=== PATIENT | male | born 1950 | race Caucasian/White ===

== ENCOUNTER 2022-03-20 07:43 | Outpatient (CLI) | payer MEDICARE, OTHER | END 2022-03-20 23:59 | disposition home or self-care (01) | LOC: LAB 07:43 | PROVIDERS: ATTEND Surgery | DX: Z01.812 Encounter for preprocedural laboratory examination (principal); Z20.822 Contact with and (suspected) exposure to COVID-19 ==

== ENCOUNTER 2022-03-21 07:23 | Day surgery (SDC) | payer MEDICARE, OTHER ==
[2022-03-21] MEDS ORDERED: PROPOFOL 200 MG/20 ML BOTTLE ONE (10:00)
[2022-03-21] MEDS ORDERED: LIDOCAINE-MPF 2% 5 ML VIAL ONE (10:00)
== END 2022-03-21 11:15 | disposition home or self-care (01) ==
LOC: DS 07:23
PROVIDERS: ATTEND Surgery
DX: R13.10 Dysphagia, unspecified (principal); K44.9 Diaphragmatic hernia without obstruction or gangrene; K29.50 Unspecified chronic gastritis without bleeding; K29.80 Duodenitis without bleeding; K31.89 Other diseases of stomach and duodenum; I10 Essential (primary) hypertension; E78.5 Hyperlipidemia, unspecified; I25.10 Atherosclerotic heart disease of native coronary artery without angina pectoris; F32.9 Major depressive disorder, single episode, unspecified; Z79.899 Other long term (current) drug therapy; Z98.890 Other specified postprocedural states; Z88.0 Allergy status to penicillin; Z88.5 Allergy status to narcotic agent
CPT/HCPCS: 43239; 71045; 93005; J3490; J7120; A4663

== ENCOUNTER 2022-12-11 12:44 | Outpatient (CLI) | payer OTHER ==
[2022-12-11] MEDS ORDERED: IOHEXOL 350 100 ML INFUS..BTL ONE (13:23)
[2022-12-11] MEDS ORDERED: IV NORMAL SALINE 250 ML IV ONE ×2 (13:24→13:26)
[2022-12-11] MEDS ORDERED: SWABABLE VALVE TRANSFER SET EA MC ONE (13:24)
[2022-12-11] MEDS ORDERED: HYDR-3980 PO (16:21)
[2022-12-11] MEDS ORDERED: OXYC10TA49 PO (16:21)
[2022-12-11] MEDS ORDERED: PANT40TA2 PO (16:21)
[2022-12-13] MEDS ORDERED: GABA-532 PO (20:12)
== END 2022-12-11 23:59 | disposition home or self-care (01) ==
LOC: RAD 12:44
PROVIDERS: ATTEND Emergency Medicine
DX: J43.2 Centrilobular emphysema (principal); R09.02 Hypoxemia; R91.8 Other nonspecific abnormal finding of lung field; M51.34 Other intervertebral disc degeneration, thoracic region; J98.4 Other disorders of lung; M40.294 Other kyphosis, thoracic region
CPT/HCPCS: 71270; 71275; Q9967

== ENCOUNTER 2022-12-11 14:50 | Inpatient (IN) | payer OTHER ==
[~2022-12-11] VITALS: Ht 167.6 cm; Wt 70.8 kg
[2022-12-11] MEDS ORDERED: LIDOCAINE HCL 1% 20 ML VIAL IJ ONE (15:00)
[2022-12-11] MEDS ORDERED: LORAZEPAM 2 MG/1 ML VIAL ONE ×2 (15:13→15:21)
[2022-12-11] MEDS ORDERED: LORAZEPAM 2 MG/1 ML VIAL IV ONE ×2 (15:15→15:21)
[2022-12-11] MEDS ORDERED: LIDOCAINE HCL 2% 20 ML VIAL ONE (15:31)
--- NOTE | 2022-12-11 15:32 | NUR ---
Patient received a second dose of ativan in the middle of procedure ordered by Dr. Greg Duran
[2022-12-11 16:13] LABS: HEMATOCRIT 34.1 % (36.7-47.1); MEAN CORPUSCULAR HEMOGLOBIN 28.2 uug (23.8-33.4); MEAN CORPUSCULAR VOLUME 88.4 fL (73.0-96.2); PLATELET COUNT (AUTO) 277 K/uL (152-348)
[2022-12-11 16:21] LABS: CARBON DIOXIDE 29 mmol/L (21-32); CHLORIDE 100 mmol/L (98-107); CREATININE 0.7 mg/dL (0.6-1.3); POTASSIUM 4.4 mmol/L (3.5-5.1); UREA NITROGEN, BLOOD 22 mg/dL (7-18)
[2022-12-11] MEDS ORDERED: PANT40TA2 PO (16:21)
[2022-12-11] MEDS ORDERED: HYDR-3980 PO (16:21)
[2022-12-11] MEDS ORDERED: OXYC10TA49 PO (16:21)
--- NOTE | 2022-12-11 16:23 | NUR ---
1) Patient had x2 0.5mg Ativant prior to chest drain insection on the left side. 2) Bubbling accordingly for the first few minutes - stopped, MD Toro present - advised that this is expected because patient did not have much air. 3) Patient clinically stable at the time of this report 4) PLAN; (i) observe BP every 15 minutes for 1/2hours (ii) observe breathing because of procedure and Ativan effect.
[2022-12-11 16:26] LABS: ALANINE AMINOTRANSFERASE 28 U/L (16-63); ALKALINE PHOSPHATASE 115 U/L (50-136); ASPARTATE AMINOTRANSFERASE 22 U/L (15-37); BILIRUBIN,TOTAL 0.3 mg/dL (0.2-1.0); TOTAL PROTEIN, SERUM 6.7 g/dL (6.4-8.2)
--- NOTE | 2022-12-11 17:16 | NUR ---
ELIMINATION: 1) Calling for urinal bottle - passed 150 yellow urine. 2) No complaints of pain observed.
--- NOTE | 2022-12-11 17:33 | NUR ---
ADMISSION: 1) MD unable to get through to [facility] 2) MD Toro informed and will arrange for transfer tomorrow. 3) Patient allocated: (i) telemetry bed (ii) bed 317 (iii) Named nurse Ivon 4) Will call and give report to BLAS Del Valle.
--- NOTE | 2022-12-11 19:00 | NUR ---
Patient taken to third floor room 317 via wheel chair with personal belongings accompanied by Ping ODONNELL. Patient in stable condition, no signs of distress noted.
[2022-12-11] MEDS ORDERED: HYDROMORPHONE 1 MG/1 ML DISP.SYRIN IV PRN (19:45)
[2022-12-11] MEDS ORDERED: HYDROMORPHONE 1 MG/1 ML DISP.SYRIN IV ONE (19:45)
[2022-12-11] MEDS ORDERED: REMEDY ESSENTIAL ZINC PASTE 113 GM TP PRN (20:30)
[2022-12-11] MEDS ORDERED: ONDANSETRON 4 MG/2 ML VIAL IV PRN (20:30)
[2022-12-11] MEDS ORDERED: IV LACTATED RINGERS SOLUTION 1,000 ML IV SCH (20:30)
[2022-12-11] MEDS ORDERED: ALPRAZOLAM 0.5 MG TABLET PO SCH (21:00)
[2022-12-11] MEDS: GABAPENTIN 100 MG CAPSULE JT SCH (21:54)
[2022-12-11] MEDS: LACTULOSE 20 G/30 ML LIQUID UDC JT SCH (21:55)
[2022-12-11] MEDS: ENOXAPARIN SODIUM 40 MG/0.4 ML DISP.SYRIN SQ SCH (21:57)
[2022-12-11] MEDS: HYDROCODONE/APAP 10-325 MG TABLET JT PRN (22:29)
[2022-12-12] VITALS (7 sets, daily range): BP systolic 102–125; BP diastolic 59–70; TEMP 97.5–98.6; O2SAT 93–97
[2022-12-12] MEDS: HYDROCODONE/APAP 10-325 MG TABLET JT PRN ×4 (03:09→18:22)
--- NOTE | 2022-12-12 05:14 | NUR ---
END OF SHIFT REPORT Admiitted to room 317, Doctor Renee aware of admission. orders carried out, IVF started, JTF started, pain management with [place] via JT, Dressing change to neck wound, chest tube intact and oscillating, with serosanguineous output.
[2022-12-12] MEDS ORDERED: TWOCAL HN 1,000 ML LIQUID GT PRN (07:30)
[2022-12-12] MEDS ORDERED: ALPRAZOLAM 0.5 MG TABLET JT SCH (07:44)
[2022-12-12 07:57] LABS: HEMATOCRIT 35.6 % (36.7-47.1); MEAN CORPUSCULAR HEMOGLOBIN 28.8 uug (23.8-33.4); MEAN CORPUSCULAR VOLUME 89.1 fL (73.0-96.2); PLATELET COUNT (AUTO) 261 K/uL (152-348)
[2022-12-12] MEDS: LACTULOSE 20 G/30 ML LIQUID UDC JT SCH ×2 (08:30→17:00)
--- NOTE | 2022-12-12 08:30 | NUR ---
pt lying in bed, awake, verbalizing frustration that too much noise in hallways, his dressing needs to be changed, and c/o pain. medicated per order. Anterior neck dressing area cleansed with NS and dry dressing applied and secured. J-tube site cleansed and DSD with split gauze applied. Shades drawn, lights off and door partially closed to decrease noise level. Pt expressed appreciation for care
[2022-12-12] MEDS: GABAPENTIN 100 MG CAPSULE JT SCH ×3 (08:31→17:31)
[2022-12-12] MEDS: PANTOPRAZOLE ORAL SUSPENSION 40 MG SUSPDR.PKT JT SCH ×2 (08:31→17:31)
[2022-12-12 08:37] LABS: ALANINE AMINOTRANSFERASE 25 U/L (16-63); ALKALINE PHOSPHATASE 131 U/L (50-136); ASPARTATE AMINOTRANSFERASE 20 U/L (15-37); BILIRUBIN,TOTAL 0.4 mg/dL (0.2-1.0); CARBON DIOXIDE 29 mmol/L (21-32); CHLORIDE 104 mmol/L (98-107); CHOLESTEROL 164 mg/dL (<200); CREATININE 0.8 mg/dL (0.6-1.3); HDL CHOLESTEROL 43 mg/dL (40-60); PHOSPHOROUS 3.7 mg/dL (2.5-4.9); POTASSIUM 4.3 mmol/L (3.5-5.1); THYROID STIMULATING HORMONE 2.675 mIU/mL (0.358-3.740); TOTAL PROTEIN, SERUM 6.7 g/dL (6.4-8.2); TRIGLYCERIDES 124 MG/DL (30-150); UREA NITROGEN, BLOOD 23 mg/dL (7-18)
[2022-12-12 08:38] LABS: IRON, SERUM 24 ug/dL (50-175)
[2022-12-12] MEDS ORDERED: PANTOPRAZOLE SODIUM 40 MG TABLET.DR PO SCH (09:00)
--- NOTE | 2022-12-12 09:00 | NUR ---
Anterior chest tube dressing changed, site cleansed with betadine, sutures intact, vaseline gauze and occlusive dressing applies. CT clamped per order Dr. Duran, pending CXR in 1 hour.
--- NOTE | 2022-12-12 10:00 | NUR ---
TF pump alarming, unable to flush J-tube, tube clogged, TF on hold. Follow up CXR completed.
--- NOTE | 2022-12-12 12:00 | NUR ---
Pt seen by Dr Duran, J-tube unclogged and TF resumed. CXR shows left lung reexpansion. pt instructed and encouraged to use incentive spirometer. Able to demonstrate use of IS.
--- NOTE | 2022-12-12 14:00 | NUR ---
Follow up message sent to CM to f/u on hospital transfer. Per Dr. Renee Stinson physician Dr Solitario Wheatley is acepting physician. heimlich valve placed on CT per Dr. Duran
--- NOTE | 2022-12-12 14:30 | NUR ---
medicated for pain, J-tube remains patent and flushes easily, TF running at 110cc/hr. Pt ambulated to BR and had large BM
--- NOTE | 2022-12-12 17:00 | NUR ---
CT with heimlich valve. Pt VSS, respirations even and unlabored, denies SOB, O2 @2L NC with saturation 96%, Using IS hourly. f/u CXR taken results pending
--- NOTE | 2022-12-12 19:00 | NUR ---
Patient in bed sleep intermittently, seen by Greg Duran with order of Bumex and KCL replacement, hob elevated, JT was off at this time, no complain of pain at this time, patient on 2 liter NC sat 96%, no sob no chest pain, uses urinal for bladder eliminations. cont to monitor.
[2022-12-12] MEDS ORDERED: POTASSIUM CHLORIDE 20 MEQ POWDER PACKET JT ONE (19:45)
[2022-12-12] MEDS ORDERED: BUMETANIDE 1 MG/4 ML VIAL IV ONE (19:45)
[2022-12-12] MEDS: ENOXAPARIN SODIUM 40 MG/0.4 ML DISP.SYRIN SQ SCH (21:16)
--- NOTE | 2022-12-12 22:14 | NUR ---
Patient has episode of v tach 5 beats, rate 170, notify Greg Duran with no new order, cont to monitor. Patient also request to have one tab only Narco 10/325mg q4 prn instead of 2 tabs of Narco 10/325mg notify Greg Duran ok to change it to one tab only.
[2022-12-13] VITALS (7 sets, daily range): BP systolic 34–144; BP diastolic 65–76; TEMP 97.6–98.8; O2SAT 93–98
[2022-12-13] MEDS: HYDROCODONE/APAP 10-325 MG TABLET PO PRN ×3 (02:15→13:15)
[2022-12-13 07:12] LABS: HEMATOCRIT 34.4 % (36.7-47.1); MEAN CORPUSCULAR HEMOGLOBIN 29.1 uug (23.8-33.4); MEAN CORPUSCULAR VOLUME 87.5 fL (73.0-96.2); PLATELET COUNT (AUTO) 263 K/uL (152-348)
--- NOTE | 2022-12-13 07:14 | NUR ---
WOUND CARE CONSULT: PT PRESENTS WITH RT THORACOTOMY WOUND WELL REDNESS TO UPPER/MIDBACK WHICH IS PRESENT ON ADMISSION. PT NOTED TO BE THIN AND BONY. PT ALSO NOTED TO HAVE J TUBE AND LEFT CHEST TUBE SITE WITH DRY INTACT DRESSING. PT IS CONTINENT AND ABLE TO REPOSITION IN BED. PT REQUESTING REGISTRATION COORDINATOR (ORDERED). PT STATES THAT HE LIVES ALONE WITH A DOG. DISCUSSED SKIN PROTECTION WITH NURSING STAFF. RT CHEST DRESSING CHANGED ORDERED WITH SALINE MOISTENED GAUZE, COVERED WITH ABD PAD AND SECURED WITH PAPER TAPE. OPTIFOAM DRESSING PLACED ON BONY SPINE AREA. PT TOLERATED WELL. MD IN AGREEMENT WITH PLAN OF CARE.
--- NOTE | 2022-12-13 07:25 | NUR ---
Received pt. AAOx4. verbalizing 9/10 generalized pain, medicated immediately. P. on room air no sob reported. Pig tail to frontal chest area hanging not attached to any drainage, no dressing at the end, as reported "Dr. Garza wants it to be this way". tube insertion site with dressing c.d.i. Iv access patent. JT- with feeding to be resumed. Patient requesting to be connected to administration to discuss a private issue.
[2022-12-13 07:43] LABS: CARBON DIOXIDE 30 mmol/L (21-32); CHLORIDE 100 mmol/L (98-107); CREATININE 0.8 mg/dL (0.6-1.3); MAGNESIUM 1.9 mg/dL (1.8-2.4); PHOSPHOROUS 2.7 mg/dL (2.5-4.9); POTASSIUM 4.1 mmol/L (3.5-5.1); UREA NITROGEN, BLOOD 24 mg/dL (7-18)
[2022-12-13] MEDS: PANTOPRAZOLE ORAL SUSPENSION 40 MG SUSPDR.PKT JT SCH ×2 (08:13→17:00)
[2022-12-13] MEDS: GABAPENTIN 100 MG CAPSULE JT SCH ×3 (08:13→17:00)
[2022-12-13] MEDS: LACTULOSE 20 G/30 ML LIQUID UDC JT SCH ×2 (08:13→17:00)
--- NOTE | 2022-12-13 12:31 | NUR ---
Clinical SW Note: SW received consultation for patient living alone and requested to speak to vp digital marketing social media and crm. SW went into patients room on 12/13/22 @ 9:10am to discuss consult. Patient agreed to speak to this SW and verified his D.O.B, address, and person to notify. Patient is a 72-year-old White male, A&Ox4, cooperative, and appeared to display an irritable/agitated mood, and congruent affect. Patient asked this SW if she was in to discuss what happened to him last night. SW provided empathy and allowed the patient to discuss his displeasure with his night/morning shift nurse. ANNAMARIA mentioned to the patient she would discuss this with the charge nurse and was also able to consult with nurse director- Giana. Giana mentioned she would investigate and follow up with the patient. SW continued with assessment and patient mentioned he lives alone, does not drive, and reported he uses [employer] and/or has a lot of friends to support him when he is in need of assistance with his ADLs and personal errands. Patient mentioned he uses DME: cane and previously used a walker, but as of recently only uses his cane. Patient mentioned he is visited by [facility] for wound care every day for about 45 minutes. Patient mentioned he has Hx of depression and is actively depressed due to his current health concerns. Patient further declined wanting mental health resources stating, they are useless and mentioned he previously had a therapist. Patient denied suicidal and homicidal ideation. Patient denied needing any other form of resources. Intervention Plan: SW will continue to follow up if needed. DC Plan: Patients plan for discharge is to go home.
--- NOTE | 2022-12-13 14:07 | NUR ---
ATIVAN 0.5MG IV given by ER Bedside during PIGTAIL insertion - MD Duran gave a verbal order and therefore, coordinated with [place] pharmacist re how to document it.
--- NOTE | 2022-12-13 16:30 | NUR ---
Call [facility] and telephone report given to Nell Sanderson included last set of vitals. patient will be going to [facility] room 2321. She was also informed of picker and packer time.
--- NOTE | 2022-12-13 17:17 | NUR ---
Ambulance services in the unit to case picker patient, report given to Billy. patient at this time refused dressing to anterior chest to be reinforced since he had removed it. stating its annoying cause I'm a hairy camille. Pt. will be going with IV access. No askew. G-t clumped line flushed. Pt. taken via ambulance.
[2022-12-13] MEDS ORDERED: GABA-532 PO (20:12)
[2022-12-13] MEDS ORDERED: MUPIROCIN 2% OINT 22 GM TUBE NS SCH (21:00)
== END 2022-12-13 17:30 | disposition short-term general hospital (02) | DRG 199 ==
LOC: ER 14:50 → TELE3 18:44
PROVIDERS: ADMIT Nurse Practitioner Acute Care; ATTEND Nurse Practitioner Acute Care
PROC: 0W9B30Z Drainage of Left Pleural Cavity with Drainage Device, Percutaneous Approach (ICD-10-PCS; principal; 2022-12-11)
DX: J93.83 Other pneumothorax (principal); J80 Acute respiratory distress syndrome; K91.71 Accidental puncture and laceration of a digestive system organ or structure during a digestive system procedure; K22.89 Other specified disease of esophagus; I48.91 Unspecified atrial fibrillation; J84.178 Other interstitial pulmonary diseases with fibrosis in diseases classified elsewhere; Y83.8 Other surgical procedures as the cause of abnormal reaction of the patient, or of later complication, without mention of misadventure at the time of the procedure; Y73.3 Surgical instruments, materials and gastroenterology and urology devices (including sutures) associated with adverse incidents; F43.10 Post-traumatic stress disorder, unspecified; D63.8 Anemia in other chronic diseases classified elsewhere; Z93.4 Other artificial openings of gastrointestinal tract status; Z22.322 Carrier or suspected carrier of Methicillin resistant Staphylococcus aureus; Z90.49 Acquired absence of other specified parts of digestive tract; F32.A Depression, unspecified; Z88.0 Allergy status to penicillin; Z82.49 Family history of ischemic heart disease and other diseases of the circulatory system; I25.10 Atherosclerotic heart disease of native coronary artery without angina pectoris; J98.4 Other disorders of lung; Z85.820 Personal history of malignant melanoma of skin; Z86.718 Personal history of other venous thrombosis and embolism; I11.0 Hypertensive heart disease with heart failure; I50.9 Heart failure, unspecified
CPT/HCPCS: 36415; 71045; 71270; 71275; 83550; 83735; 84100; 84443; 84484; 85025; A4663; A6209; A6213; G0378; J1170; J1650; J2060; J3490; J7120; Q9967

== ENCOUNTER 2023-04-23 12:20 | Emergency (ER) | payer OTHER ==
[~2023-04-23] VITALS: Ht 167.6 cm; Wt 70.3 kg
[~2023-04-23 12:20] MED LIST: ACET-2030 PO; HYDR-3980 PO; PANT40TA2 PO; SIME80TA15 PO
[2023-04-23 12:23] VITALS: O2SAT 97
[2023-04-23 12:55] LABS: BASOPHILS % (AUTO) 0.6 % (0.0-2.0); EOSINOPHILS # (AUTO) 0.1 K/uL (0.0-0.7); EOSINOPHILS % (AUTO) 2.2 % (0.0-7.0); HEMATOCRIT 31.5 % (36.7-47.1); HEMOGLOBIN 9.7 g/dL (12.5-16.3); LYMPHOCYTES # (AUTO) 1.7 K/uL (0.8-4.8); LYMPHOCYTES % (AUTO) 25.9 % (20.5-51.5); MEAN CORPUSCULAR HEMOGLOBIN 23.7 uug (23.8-33.4); MEAN CORPUSCULAR HGB CONC 31 g/dL (32.5-36.3); MEAN CORPUSCULAR VOLUME 76.7 fL (73.0-96.2); MONOCYTES # (AUTO) 0.4 K/uL (0.1-1.30); MONOCYTES % (AUTO) 6.2 % (0.0-11.0); NEUTROPHILS # (AUTO) 4.2 K/uL (1.8-8.9); NEUTROPHILS % (AUTO) 65.1 % (38.5-71.5); PLATELET COUNT (AUTO) 290 K/uL (152-348); RED CELL DISTRIBUTION WIDTH 17.2 % (12.1-16.2); WHITE BLOOD COUNT (AUTO) 6.4 K/uL (3.6-10.2)
[2023-04-23 12:57] LABS: *BILIRUBIN,URIN NEGATIVE (NEGATIVE); *BLOOD, URINE 1+ (NEGATIVE); *CLARITY,URINE CLEAR (CLEAR); *COLOR,URINE YELLOW (YELLOW); *KETONES,URINE NEGATIVE (NEGATIVE); *PROTEIN,URINE NEGATIVE (NEGATIVE); *UROBILINOGEN,URINE 0.2 E.U./dl (NORMAL); LEUKOCYTE ESTERASE ,URINE NEGATIVE (NEGATIVE); NITRITE, URINE NEGATIVE (NEGATIVE); PH,URINE 5.5 (5.0-8.0); UGLUCOSE NEGATIVE (NEGATIVE)
[2023-04-23 13:00] LABS: DIFFERENTIAL COMMENT 1
[2023-04-23 13:06] LABS: CALCIUM 9.2 mg/dL (8.5-10.1); CARBON DIOXIDE 28 mmol/L (21-32); CHLORIDE 105 mmol/L (98-107); CREATININE 0.8 mg/dL (0.6-1.3); GLUCOSE 89 mg/dL (74-106); POTASSIUM 3.8 mmol/L (3.5-5.1); SODIUM SERUM 139 mmol/L (136-145); UREA NITROGEN, BLOOD 12 mg/dL (7-18)
[2023-04-23 13:12] LABS: ALANINE AMINOTRANSFERASE 16 U/L (16-63); ALBUMIN 3.3 g/dL (3.4-5.0); ALKALINE PHOSPHATASE 86 U/L (50-136); ASPARTATE AMINOTRANSFERASE 14 U/L (15-37); BILIRUBIN,DIRECT 0.1 mg/dL (0.0-0.2); BILIRUBIN,TOTAL 0.2 mg/dL (0.2-1.0)
[2023-04-23 13:21] LABS: *AMPHETAMINE, URINE NEGATIVE (NEGATIVE); *BARBITURATE, URINE NEGATIVE (NEGATIVE); *BENZODIAZEPINE, URINE NEGATIVE (NEGATIVE); *CANNABINOID, URINE NEGATIVE (NEGATIVE); *COCCAINE, URINE NEGATIVE (NEGATIVE); *OPIATE, URINE POSITIVE (NEGATIVE); *PHENCYCLIDINE SCREEN,URINE NEGATIVE (NEGATIVE)
[2023-04-23 13:53] LABS: FENTANYL, URINE NEGATIVE (NEGATIVE)
[2023-04-23 13:59] LABS: BACTERIA,URINE FEW /HPF (NONE SEEN); RBC,URINE 0-3 /HPF (0-3); SQUAMOUS EPITHELIAL CELL,UR FEW /HPF (NONE SEEN); WBC,URINE 0-3 /HPF (0-3)
[2023-04-23 14:27] LABS: THYROID STIMULATING HORMONE 1.22 mIU/mL (0.358-3.740)
[2023-04-23 14:46] LABS: IRON, SERUM 13 ug/dL (50-175)
[2023-04-23 15:00] LABS: FERRITIN 10 ng/mL (26-388)
[2023-04-24 07:06] LABS: *TESTOSTERONE, SERUM 541 ng/dL (264-916)
[2023-04-24 10:06] LABS: CALCITRIOL VIT D,1,25 DIHYDROX 41.5 pg/mL (24.8-81.5)
== END 2023-04-23 13:06 | disposition home or self-care (01) ==
LOC: ER 12:20
DX: Z00.00 Encounter for general adult medical examination without abnormal findings (principal); I50.9 Heart failure, unspecified; I25.10 Atherosclerotic heart disease of native coronary artery without angina pectoris; K21.9 Gastro-esophageal reflux disease without esophagitis; Z79.899 Other long term (current) drug therapy; Z98.890 Other specified postprocedural states; Z60.2 Problems related to living alone; Z88.0 Allergy status to penicillin; Z88.5 Allergy status to narcotic agent
CPT/HCPCS: 36415; 82652; 83550; 84403; 84443; 85025; A4606; A4663